=== PATIENT | female | born 1930 | race Caucasian/White ===

== ENCOUNTER 2022-01-21 11:25 | Day surgery (SDC) | payer OTHER ==
[2022-01-21] MEDS ORDERED: propofoL 200 MG/20 ML VIAL IV ONE (12:03)
[2022-01-21] MEDS ORDERED: FENTANYL CITR 100 MCG/2 ML ONE (12:03)
[2022-01-21] MEDS ORDERED: ONDANSETRON 4 MG/2 ML VIAL ONE (12:05)
[2022-01-21] MEDS ORDERED: LIDOCAINE 1% MPF 2 ML AMPULE ONE (12:06)
[2022-01-21] MEDS ORDERED: Ringers Lactate 1,000 ML IV ONE (12:11)
[2022-01-21 12:16] LABS: Absolute Lymphocytes (CBC) 1.9 K/uL (0.7-4.9); Hematocrit 39.2 % (36.0-45.0); Lymphocytes % 21.6 % (15.3-44.8); MPV 7.9 fL (7.6-11.3); RBC Red Blood Cell Count 4.47 M/uL (3.86-4.86)
[2022-01-21] MEDS ORDERED: SODIUM HYPOCHLORITE 0.25% 473 ML ONE (12:17)
[2022-01-21 12:24] LABS: Protime INR 1.12
[2022-01-21] MEDS: CEFAZOLIN SODIUM 1 GM/VIAL ONE ×2 (12:26→12:34)
[2022-01-21 12:32] LABS: Potassium 4.4 mmol/L (3.5-5.1)
[2022-01-21] MEDS: BUPIVACAINE 0.25% PF 10 ML VIAL ONE ×3 (12:33→12:53)
--- NOTE | 2022-01-21 13:17 | P.OP ---
Preoperative diagnosis: Right Foot 5th Toe Postoperative diagnosis: Right Foot 5th Toe Primary procedure: Amputation of Right Foot 5th Toe Secondary procedure: Debridement of Right foot multiple toe wounds Anesthesia: GETA Estimated blood loss: <10cc Specimen: Toe Findings: Necrosis of 5th Toe of the RIGHT foot Complications: None Transferred to: Recovery Room Condition: Good
--- NOTE | 2022-01-21 13:49 | OP ---
Date of Procedure: 01/21/2022 Surgeon: To Bermeo MD, Preoperative Diagnosis: Right foot fifth toe gangrene. Postoperative Diagnosis: Right foot fifth toe gangrene. Procedures Performed: 1.Amputation of the right fifth toe. 2.Debridement of subsequent wounds of all 4 remaining toes on the medial aspect. Anesthesia: General endotracheal. Estimated Blood Loss: Less than 10 mL. Specimen: Toe. Findings: Necrosis of the fifth toe of the right foot. Complications: None. Disposition: The patient was transferred to the recovery room in good condition. Procedure In Detail: After informed consent was obtained, the patient was brought to the operating r oom, prepped and draped in the usual sterile fashion after adequate anesthesia was achieved. I disse cted down circumferentially around the area of necrosis where there were black gangrenous changes to the fifth toe/big toe of the right foot with a 15-blade down to subcutaneous tissues. Bleeding was m inimal. I dissected down to the metatarsophalangeal joint and ligated the structures at this point, removed all infected and affected tissues, sent it off for pathologic examination. I then copiously irrigated the area until completely clear, ran a curette over the remaining medial toes where small w ounds were appreciated with sloughing necrosis. They did not require any extensive debridement. I t marko returned back to the fifth toe amputation site, irrigated the area, and reapproximated the deep t issues with 3-0 Vicryl suture and placed a single reapproximation stitch of 2-0 nylon on the lateral aspect. The wound was then packed with sterile dressing. The patient tolerated the procedure withou t evidence of complication and transferred to PACU in good condition. All counts were correct at the end of the case. TK/MODL Voice ID: [id number] Report ID: [id number]
[2022-01-21 14:42] VITALS: BP 121/56; O2SAT 100
[2022-01-21 15:37] VITALS: TEMP 97.1
== END 2022-01-21 15:30 | disposition home or self-care (01) ==
LOC: OR 11:25
PROVIDERS: ATTEND Surgery
PROC: 0HDMXZZ Extraction of Right Foot Skin, External Approach (ICD-10-PCS; 2022-01-21)
PROC: 0Y6M0Z8 Detachment at Right Foot, Complete 5th Ray, Open Approach (ICD-10-PCS; principal; 2022-01-21 11:30)
DX: I96 Gangrene, not elsewhere classified (principal); L03.031 Cellulitis of right toe; S91.104A Unspecified open wound of right lesser toe(s) without damage to nail, initial encounter; L08.9 Local infection of the skin and subcutaneous tissue, unspecified; Z20.822 Contact with and (suspected) exposure to COVID-19
CPT/HCPCS: 93005; 85025; 80048; 36415; 85610; 88305; 88311; 28810; 97597; U0003; J2704; J3010; J7120; J2405; J0690

== ENCOUNTER 2022-01-31 11:33 | Emergency (ER) | payer MEDICARE, OTHER ==
[2022-01-31] MEDS ORDERED: PIPERACIL/TAZO 3.375 GM VIAL IV ONE (12:49)
[2022-01-31] MEDS ORDERED: NA CHLORIDE 0.9% 100 ML ONE (12:49)
[2022-01-31] MEDS ORDERED: VANCOMYCIN 1 GM in NA CHLORIDE 0.9% 250 ML IVPB ONE (13:00)
[2022-01-31] MEDS ORDERED: VANCOMYCIN 1 GM/VIAL ONE (13:11)
[2022-01-31] MEDS ORDERED: NA CHLORIDE 0.9% 500 ML ONE ×2 (13:11→14:26)
[2022-01-31 13:36] LABS: Absolute Lymphocytes (CBC) 1.9 K/uL (0.7-4.9); Hematocrit 38.8 % (36.0-45.0); Lymphocytes % 15.2 % (15.3-44.8); MPV 7.8 fL (7.6-11.3); RBC Red Blood Cell Count 4.44 M/uL (3.86-4.86)
--- NOTE | 2022-01-31 14:15 | RAD REPORT ---
EXAM DESCRIPTION: RAD - Foot Right 3 View - 01/31/2022 1:24 pm CLINICAL HISTORY: PAIN COMPARISON: No comparisons FINDINGS: Prominent diffuse osteopenia is seen. Amputation of the fifth toe is present. There is cira dence of soft tissue ulceration at the level of the amputation site. The underlying bone cortex appea rs intact but could be exposed. Moderate flatfoot deformity.
[2022-01-31 14:55] LABS: Albumin 3.2 g/dL (3.4-5.0); Bilirubin Total 0.6 mg/dL (0.2-1.0); Potassium 5.2 mmol/L (3.5-5.1); Protein, Total 7.2 g/dL (6.4-8.2)
--- NOTE | 2022-01-31 15:05 | RAD REPORT ---
EXAM DESCRIPTION: US - Extrem Venous W Compress Sammy - 01/31/2022 2:56 pm CLINICAL HISTORY: Pain Bilateral leg edema and swelling. COMPARISON: <Comparisons> TECHNIQUE: Real-time sonographic interrogation of the left and right lower extremity deep venous sys tems was performed. FINDINGS: Normal compressibility, flow augmentation, phasic flow and spontaneous flow is identified in both the left and right lower extremity deep venous systems. IMPRESSION: No sonographic evidence of left or right lower extremity deep venous thrombosis.
--- NOTE | 2022-01-31 15:14 | RAD REPORT ---
EXAM DESCRIPTION: US - Lower Extremity Arterial Bilat - 01/31/2022 2:56 pm CLINICAL HISTORY: PAIN COMPARISON: No comparisons TECHNIQUE: Bilateral lower extremity arterial Doppler examination was performed with waveform tracin g and velocity measurements. FINDINGS: There is extensive hard plaquing throughout the right lower extremity arterial system. Monophasic dis ease waveform seen right popliteal artery with no flow visualized in the right posterior tibial and d iminished monophasic flow in the dorsalis pedis. Similar hard plaquing pattern is seen in the left lower extremity arterial system. No flow could be v isualized in the [place] arteries distal to the left proximal superficial femoral artery. Collateraliz ation is noted with reconstitution of flow in the left popliteal artery which is monophasic and signi ficantly blunted. No flow visualized left posterior tibial artery. Monophasic flow in the left dorsal is pedis artery. IMPRESSION: Significant bilateral lower extremity arterial vascular disease is present, more severe on the left as detailed.
--- NOTE | 2022-01-31 15:29 | ER ---
Nurse's Notes [facility] Name: Jia Mckinney Age: 89 yrs Sex: Female : 1930 Arrival Date: 01/31/2022 Time: 11:37 Bed 3 Private MD: Diagnosis: Peripheral artery disease;Cellulitis Presentation: 01/31 11:38 Chief complaint: EMS states: Family states that patient began hallucinating earlier ss today and they want her checked out to be safe. Has reportedly been having difficulty urinating and hx of amputated toes for infection. Coronavirus screen: Client denies travel out of the [place] in the last 14 days. Ebola Screen: Patient denies exposure to infectious person. Patient denies travel to an Ebola-affected area in the 21 days before illness onset. Initial Sepsis Screen:. Onset of symptoms was January 31, 2022. 11:38 Method Of Arrival: [facility] 11:39 Risk Assessment: Do you want to hurt yourself or someone else? Patient reports no ss desire to harm self or others. Care prior to arrival: IV initiated. 20 GA, in the left antecubital area, BGL 208. 11:40 Initial Sepsis Screen: Does the patient meet any 2 criteria? No. Patient's initial ss sepsis screen is negative. 11:40 Acuity: LUL 3 ss 11:40 Initial Sepsis Screen: Does the patient have a suspected source of infection? Yes: Bone jg9 or joint infection. Triage Assessment: 12:15 General: Appears in no apparent distress. Behavior is calm, cooperative. Pain: jg9 Complains of pain in right foot. EENT: No deficits noted. Neuro: No deficits noted. Cardiovascular: No deficits noted. Respiratory: No deficits noted. GI: No deficits noted. : No deficits noted. Derm: Skin Wound noted right foot-great toe amputation. Musculoskeletal: No deficits noted. Historical: - Allergies: 12:15 No Known Allergies; jg9 - Home Meds: 12:15 None [Active]; jg9 - PMHx: 12:15 PVD; jg9 - PSHx: 12:15 right great toe amputation; jg9 - Immunization history:: Adult Immunizations up to date. - Social history:: Smoking status: Patient denies any tobacco usage or history of. Screenin:35 Abuse screen: Denies threats or abuse. Denies injuries from another. Nutritional jg9 screening: No deficits noted. Tuberculosis screening: No symptoms or risk factors identified. Fall Risk Fall in past 12 months (25 points). Assessment: 13:39 Reassessment: No changes from previously documented assessment. Patient and/or family jg9 updated on plan of care and expected duration. Pain level reassessed. Patient is alert, oriented x 3, equal unlabored respirations, skin warm/dry/pink. 14:00 Reassessment: No changes from previously documented assessment. Patient and/or family jg9 updated on plan of care and expected duration. Pain level reassessed. Patient is alert, oriented x 3, equal unlabored respirations, skin warm/dry/pink. 16:00 Reassessment: No changes from previously documented assessment. Patient and/or family jg9 updated on plan of care and expected duration. Pain level reassessed. Patient is alert, oriented x 3, equal unlabored respirations, skin warm/dry/pink. 17:00 Reassessment: No changes from previously documented assessment. Patient and/or family jg9 updated on plan of care and expected duration. Pain level reassessed. Patient is alert, oriented x 3, equal unlabored respirations, skin warm/dry/pink. 18:15 Reassessment: report called to [facility] to ZOIE Gaines. jg9 Vital Signs: 11:40 BP 144 / 88; Pulse 88; Resp 16; Temp 97.9(O); Pulse Ox 99% on R/A; ss 11:45 BP 116 / 78; Pulse 75; Resp 16; Temp 97.8(O); Pulse Ox 98% on R/A; dh3 13:45 BP 109 / 71; Pulse 80; Resp 17 S; Pulse Ox 98% on R/A; jg9 18:15 BP 108 / 80; Pulse 74; Resp 16 S; Pulse Ox 95% on R/A; jg9 19:50 BP 110 / 78; Pulse 76; Resp 18; Temp 98; Pulse Ox 97% ; ke1 ED Course: 11:37 Patient arrived in ED. ss 11:41 Triage completed. ss 11:52 Jia Lin PA is PHCP. en 11:52 Adithya Barber MD is Attending Physician. [facility] 12:19 Deepthi Trevizo, RN is Primary Nurse. jg9 13:15 Inserted saline lock: 20 gauge in right antecubital area, using aseptic technique. jg9 13:26 Foot Right 3 View XRAY In Process Unspecified. EDMS 13:38 Arm band placed on left ankle. jg9 13:39 Patient has correct armband on for positive identification. Bed in low position. Call jg9 light in reach. Side rails up X 1. 14:02 No apparent distress. Resting quietly. Pt visited by Friend. jg9 14:30 Lab(s) recollected, by me, sent to lab. Inserted saline lock: 22 gauge in left forearm, dh3 using aseptic technique. Blood collected. 14:58 US Extremity Venous W Compression Sammy In Process Unspecified. EDMS 14:58 US LE Arterial Bilateral In Process Unspecified. EDMS 15:26 Crys Singh MD is Hospitalizing Provider. en 16:00 initiated a transfer with Yair Hitchcock from the [facility]. eb 16:[address] Moscoso the hospitalist check writer salesperson for [facility] with Jia Ponce for patient transfer consultation. 16:52 SARS-COV-2 RT PCR (Document "Date of Onset" if Symptomatic) Sent. eb 17:08 administrative approval given by Yair Hitchcock Promotion Specialist transaction coordinator. eb patient has been accepted to [facility] room 1039/ report to be called to [phone]. 19:51 No provider procedures requiring assistance completed. Patient transferred, IV remains ke1 in place. Administered Medications: 13:36 Drug: Zosyn (piperacillin-tazobactam) 3.375 grams Route: IVPB; Infused Over: 60 mins; jg9 Site: right antecubital; 14:32 Follow up: IV Status: Completed infusion; IV Intake: 100ml jg9 14:32 Drug: NS 0.9% 500 ml Route: IV; Rate: bolus; Site: left forearm; jg9 18:14 Follow up: IV Status: Completed infusion; IV Intake: 500ml jg9 14:33 Drug: vancoMYCIN 1 grams Route: IVPB; Infused Over: 2 hrs; Site: right antecubital; jg9 18:14 Follow up: IV Status: Completed infusion; IV Intake: 500ml jg9 19:31 Drug: NS 0.9% 1000 ml Route: IV; Rate: 125 ml/hr; Site: right antecubital; jg9 Medication: 13:39 VIS not applicable for this client. jg9 Intake: 14:32 IV: 100ml; Total: 100ml. jg9 18:14 IV: 500ml; Total: 600ml. jg9 18:14 IV: 500ml; Total: 1100ml. jg9 Outcome: 15:28 Decision to Hospitalize by Provider. en 19:20 ER care complete, transfer ordered by MD. ms3 19:51 Transferred by ground EMS ke1 19:51 Condition: stable 19:51 Instructed on the need for transfer. 19:52 Patient left the ED. ke1 Signatures: Dispatcher [employer] EDMS Adithya Barber MD MD cha Smirch, Shelby, RN RN Katey Solorio [facility] Jia Cuevas Marcus, DO DO ms3 Deepthi Trevizo RN RN jg9 Sandy Da Silva RN RN ke1 Jia Lin PA PA en Corrections: (The following items were deleted from the chart) 16:56 16:34 connected the hospitalist check writer salesperson for [facility] with Jia Ponce for eb patient transfer consultation. eb
--- NOTE | 2022-01-31 15:29 | EDPHYS ---
Physician Documentation [facility] Name: Jia Mckinney Age: 89 yrs Sex: Female : 1930 Arrival Date: 01/31/2022 Time: 11:37 Bed 3 Private MD: ED Physician Adithya Barber HPI: 01/31 13:20 This 89 yrs old Female presents to ER via EMS with complaints of foot en infection. 13:21 89 yo F with HTN, DM presents to ED with worsening right foot infection. pt is s/p R en 5th toe amputation 10d ago by Dr Bear. Completed po bactrim 2 days ago and noticed worsening swelling and drainage from foot soaking through dressing. Pt lives alone. Wound care has been out to house and family is doing daily dressing changes. No redness or purulence. increased pain to 1st toe, which is new. No F/C. . Historical: - Allergies: 12:15 No Known Allergies; jg9 - Home Meds: 12:15 None [Active]; jg9 - PMHx: 12:15 PVD; jg9 - PSHx: 12:15 right great toe amputation; jg9 - Immunization history:: Adult Immunizations up to date. - Social history:: Smoking status: Patient denies any tobacco usage or history of. ROS: 13:21 Constitutional: Negative for fever, chills, and weight loss. en 13:21 Constitutional: Negative for chills, fever. 13:21 Cardiovascular: Negative for chest pain. 13:21 Respiratory: Negative for cough, shortness of breath. 13:21 Abdomen/GI: Negative for nausea, vomiting, and diarrhea. 13:21 MS/extremity: Negative for worsening right foot pain and swelling. 13:21 Skin: Positive for increased serous drainage from right foot soaking through dressings. . 13:21 All other systems are negative. Exam: 13:21 Constitutional: Chronically ill appearing and elderly female in NAD en 13:21 Constitutional: The patient appears alert, awake. 13:21 Head/face: Exam is negative for acute changes. 13:21 Eyes: Conjunctiva: no acute changes, no exudate, no injection. 13:21 ENT: poor dentition, airway patent, MMM. 13:21 Neck: ROM/movement: is normal. 13:21 Cardiovascular: Exam negative for Rate: normal, Rhythm: regular, Pulses: 1+DP pulses BLE, unable to palpate PT pulses. 2+ BUE. 13:21 Respiratory: the patient does not display signs of respiratory distress, Respirations: normal, Breath sounds: are clear throughout, no rales, rhonchi, no wheezing. 13:21 Abdomen/GI: Inspection: abdomen appears normal, Bowel sounds: normal, Palpation: abdomen is soft and non-tender. 13:21 Back: CVA tenderness, is absent. 13:21 Musculoskeletal/extremity: Right foot dusky with diffuse pitting edema. s/p R 5th toe amputation/ Incision with sutures in place. 1+ faint DP, unable to palpate PT. No surrounding erythema or expressible purulence but copious serous drainage.. Vital Signs: 11:40 BP 144 / 88; Pulse 88; Resp 16; Temp 97.9(O); Pulse Ox 99% on R/A; ss 11:45 BP 116 / 78; Pulse 75; Resp 16; Temp 97.8(O); Pulse Ox 98% on R/A; dh3 13:45 BP 109 / 71; Pulse 80; Resp 17 S; Pulse Ox 98% on R/A; jg9 18:15 BP 108 / 80; Pulse 74; Resp 16 S; Pulse Ox 95% on R/A; jg9 19:50 BP 110 / 78; Pulse 76; Resp 18; Temp 98; Pulse Ox 97% ; ke1 MDM: 11:52 Patient medically screened. [facility] 13:21 Differential Diagnosis gangrene, cellulitis, post-op infection, PVD. ED course: en reviewed imaging and labs and need for admission. Consulted Dr Pedraza, who will see pt. . 15:57 Data reviewed: vital signs, nurses notes, old medical records, and as a result, I will en Initial plan was for admission. Now transferring. ED course: Pt has now agreed to transfer. Will initiate transfer. 16:37 ED course: Accepted by Dr Moscoso at [facility]. en 01/31 12:32 Order name: CBC with Diff; Complete Time: 15:58 en 01/31 12:32 Order name: CMP; Complete Time: 15:58 en 01/31 12:32 Order name: Blood Culture Adult (2) en 01/31 12:32 Order name: Foot Right 3 View XRAY; Complete Time: 15:58 en 01/31 12:47 Order name: US Extremity Venous W Compression Sammy; Complete Time: 15:58 [facility] 01/31 15:58 Order name: SARS-COV-2 RT PCR (Document "Date of Onset" if Symptomatic) eb 01/31 12:32 Order name: Cardiac monitoring; Complete Time: 13:36 en 01/31 12:32 Order name: EKG - Nurse/Tech; Complete Time: 13:36 en 01/31 12:47 Order name: US LE Arterial Bilateral; Complete Time: 15:58 [facility] 01/31 12:32 Order name: IV Saline Lock - Large Bore; Complete Time: 13:36 en 01/31 12:32 Order name: Labs collected and sent; Complete Time: 13:36 en 01/31 12:32 Order name: O2 Per Protocol; Complete Time: 12:50 en 01/31 12:32 Order name: O2 Sat Monitoring; Complete Time: 12:50 en 01/31 13:45 Order name: Labs - recollect needed: recollect chemistries; Complete Time: 14:32 eb Administered Medications: 13:36 Drug: Zosyn (piperacillin-tazobactam) 3.375 grams Route: IVPB; Infused Over: 60 mins; jg9 Site: right antecubital; 14:32 Follow up: IV Status: Completed infusion; IV Intake: 100ml jg9 14:32 Drug: NS 0.9% 500 ml Route: IV; Rate: bolus; Site: left forearm; jg9 18:14 Follow up: IV Status: Completed infusion; IV Intake: 500ml jg9 14:33 Drug: vancoMYCIN 1 grams Route: IVPB; Infused Over: 2 hrs; Site: right antecubital; jg9 18:14 Follow up: IV Status: Completed infusion; IV Intake: 500ml jg9 19:31 Drug: NS 0.9% 1000 ml Route: IV; Rate: 125 ml/hr; Site: right antecubital; jg9 Disposition: 16:11 Chart complete. en Disposition Summary: 01/31/22 19:20 Transfer Ordered Transfer Location: [facility] ms3 Reason: Higher level of care ms3 Condition: Stable(01/31/22 19:20) ms3 Problem: new(01/31/22 19:20) ms3 Symptoms: are unchanged(01/31/22 19:20) ms3 Accepting Physician: (01/31/22 19:52) adolfo Diagnosis - Peripheral artery disease ms3 - Cellulitis ms3 Forms: - Medication Reconciliation Form ms3 - SBAR form ms3 Signatures: Dispatcher [employer] EDMS Adithya Barber MD MD cha Botello, Elizabeth eb Sims, Marcus, DO DO ms3 Deepthi Trevizo RN RN jg9 Sandy Da Silva RN RN ke1 Jia Lin, LISA PA en Corrections: (The following items were deleted from the chart) 12:38 12:32 Accucheck ordered. en jg9 19:18 15:28 Inpatient Admission en ms3 19:18 15:28 Crys Singh en ms3 19:18 15:28 Telemetry/MedSurg (Inpatient) en ms3 19:18 15:28 Fair en ms3 19:18 15:28 chronic en ms3 19:18 15:28 have worsened en ms3 19:18 15:28 Standard en ms3 19:18 15:28 en ms3 19:18 15:28 Cellulitis of right lower limb en ms3 19:18 15:28 Peripheral vascular disease, unspecified en ms3 19:52 19:20 ms3 ke1
--- NOTE | 2022-01-31 19:31 | CON ---
Date of Consultation: 01/31/2022 Brief History Of Present Illness: The patient is an 89-year-old female, known to me from [facility], who presents back to the ER with complaints of worsening, swelling and pain to her r ight fifth toe amputation site and worsening cellulitis and pain to the remaining foot. The patient had been placed on p.o. Bactrim and was recommended to go see Dr. Gaurang Jesus, endovascular radiologist, referral has been sent. The patient also had orders for duplex arterial venous ultrasounds to evalu ate her arterial venous systems for severe peripheral arterial disease suspected; however, the patien t opted to not have any of these procedures performed after her emergent surgical intervention. She had essentially been seen in my clinic in the past and stated that she would only have surgery if she could have it done that same day. Fortunately, she was n.p.o., was taken on that previous occasion to the OR where an amputation of the fifth toe was performed as she would only consent to amputation of the fifth toe and no additional debridements. She states she wanted to see if it would improve af ter that and as such she did not follow up in my clinic in the allotted time. We had wound care arra kelsea for her and she had worsening of her wound. She was recommended to go to the ER and have this e valuated and come to my clinic earlier to have the wound assessed on a frequent followup basis and I instructed her likely severe peripheral arterial disease; however, she continued to resist coming to the clinic ER or have any medical assistance. Her neighbor has been assisting to bring her to and fr om her various appointments. She is the person responsible for bringing her to the ER on this occasi on as well. I have instructed the patient that it looks like she has significant worsening of her sy mptoms. The patient is insisting she wants to go home and does not want to be admitted for a workup or treatment regardless of the outcome. Past Medical History: Significant for severe peripheral arterial disease. Also includes hypertensio n. Past Surgical History: Right great toe amputation. Medications: She denies. Allergies: SHE DENIES ANY DRUG ALLERGIES. SHE HAD A LABORATORY EXAM WHICH REVEALED A WHITE BLOOD CELL COUNT OF 12.3, HEMOGLOBIN 12.6, HEMATOCRI T OF 38.8, PLATELET COUNT WAS 284. Physical Examination: General: At the time of my examination; she is awake, alert, and oriented. Psychiatric: She was conversive, but belligerent. This was consistent with all of my interactions w ith her in the past, both in clinic and hospital and in the perioperative. She was quite belligerent throughout; however, she was more receptive to medical care with the presence of her neighbor who wa s assisting her on all of these occasions. She was oriented to person, place, time, and event howeve r. Generally, she also appears disheveled as she did on previous occasion as well. HEENT: She is normocephalic. She had a dysconjugate gaze and some anisocoria with respect to her ey es. Neck: Supple without JVD. Chest: Expansion and excursion. Cardiovascular: Regular. Pulmonary: Clear to auscultation bilaterally. Abdomen: Soft. Extremities: Focused examination of the bilateral lower extremities, previous surgical site in the r ight lower extremity the fifth toe had ongoing black necrosis and an open wound which was not properl y dressed with ischemic changes evident and ongoing infection. The cellulitis extended over the enti re distal aspect of the foot up to the mid foot with mild swelling proximal to this up to the mid jose f area. It was all tender on bilateral lower extremities and her extremities were both cool to the t ouch. She additionally had small skin abrasions, which she states she fell recently and had describe d multiple falls before between the last surgical intervention and today's visit to the ER. There ar e very small abrasions to the right lower extremity, left lower extremity as well. She has discolora tion and lack of hair consistent with severe peripheral arterial disease on the bilateral lower extre mity examination and I cannot palpate pulses here as well. Laboratory Data: She had an additional lab work, which included sodium of 131, potassium 5.2, chlori de 99, carbon dioxide was 21, BUN 36, creatinine 1.3, glucose is 134, calcium 9.1, total bilirubin 0. 6, AST 61, ALT 69, alkaline phosphatase is 142. She had a serology of COVID, which is currently pend ing. I ordered a stat Doppler ultrasound study of the bilateral lower extremities, which was officia lly read as extensive hard plaquing throughout the right lower extremity arterial system, monophasic disease waveform seen in the right popliteal artery with no flow visualized in the right posterior ti bial and diminished monophasic flow in the dorsalis pedis. Similar hard plaquing pattern seen in the left lower extremity arterial system. No flow could be visualized in the [place] arteries distal to the left proximal superficial femoral artery. Collateralization is noted with reconstitution of flow in the popliteal artery, which is monophasic and significantly blunted. No flow visualized in the l eft posterior tibial artery. Monophasic flow in the left dorsalis pedis artery. The official impres naida is significant bilateral lower extremity arterial vascular disease present, more severe on the l eft as detailed. She additionally had a venous extremity study, officially read as no sonographic ev idence of left or right DVT. Assessment And Plan: This is an 89-year-old female, who comes in with severe peripheral arterial dis ease, status post amputation of the fifth toe of her left foot, now with worsening cellulitis and claudio oing infection of bilateral extremities. 1.IV fluid hydration. 2.Antibiotic coverage. 3.I have requested a consultation with Dr. Emery for endovascular assessment to see if the patient can have endovascular radiologic revascularization at this point; however, if she is not a candidate for this, I recommend transfer to higher level of care for possible revascularization and assessment with a vascular surgeon. The patient is belligerent and has been declining any intervention includin g admission in the hospital. She has agreed to the studies, which were elicited above as well as rec eiving IV vancomycin x1 dose. I will await Dr. Emery's recommendations. We are contacting Dr. Mai groves currently and if he feels she is a good candidate for revascularization here, she will be treated here. If not, she will be transferred to higher level of care for ongoing management. I have explai homero risks, benefits, and alternatives of the above stated plan. The patient is belligerent and state s she will think about it prior to making a decision. As such, I will remain available. Thank you for this interesting consult. DOUGLAS/CHEPE Voice ID: [id number] Report ID: [id number]
[2022-01-31] MEDS ORDERED: NA CHLORIDE 0.9% 1,000 ML ONE (19:39)
[2022-01-31 20:04] VITALS: BP 110/78; TEMP 98; O2SAT 97
--- NOTE | 2022-02-01 13:21 | EKG ---
Test Date: 2022-01-31 Test Time: 12:48:50 Prestidigitator: KELECHI MEASUREMENT RESULTS: Intervals: Rate: 71 PA: QRSD: 82 QT: 414 QTc: 449 Keller: P: PA: QRS: -16 T: 54 INTERPRETIVE STATEMENTS: Atrial fibrillation ST & T wave abnormality, consider anterior ischemia Abnormal ECG No previous ECG available for comparison Electronically Signed On 02-01-22 13:19:28 CDT by Gilbert Emery
== END 2022-01-31 19:52 | disposition short-term general hospital (02) ==
LOC: ER 11:33
DX: I73.9 Peripheral vascular disease, unspecified (principal); Z89.411 Acquired absence of right great toe; E11.9 Type 2 diabetes mellitus without complications; I10 Essential (primary) hypertension; Z20.822 Contact with and (suspected) exposure to COVID-19
CPT/HCPCS: 96365; 96367; 93005; 87040 ×2; 85025; 36415; 87205 ×2; 80053; 73630; 93925; 93970; 99285; 96366; U0003; J2543; J3370; J7040 ×2; J7030

== ENCOUNTER 2022-02-18 18:49 | Emergency (ER) | payer OTHER ==
--- OUTSIDE RECORDS SUMMARY | 2022-02-18 19:15 | XMS REPORT | Continuity of Care Document ---
:1930 Author Organization [facility] t Address [address] [place] [address] Care Team Providers Name Role Phone MENA VILLEGAS Attending Clinician Unavailable Attending Clinician Unavailable SUSAN AVELAR Admitting Clinician Unavailable Payers Payer Name Policy Type Policy Number Effective Date Expiration Date Tiffanie RODRIGEZ MEDICARE [id number] 2021 00:00:00 Problems This patient has no known problems. Allergies, Adverse Reactions, Alerts Allergy Allergy Status Severity Reaction(s) Onset Inactive Treating Comm ents Source Name Type Date Date Clinician NO KNOWN Allergy Active [facility] Medications This patient has no known medications. Vital Signs Vital Name Observation Time Observation Value Comments Source HEIGHT 2022-01-31 21:33:00 157.5 cm WEIGHT 2022-01-31 21:33:00 62.506 kg HEIGHT 2022-01-31 21:33:00 157.5 cm WEIGHT 2022-01-31 21:33:00 62.506 kg Procedures This patient has no known procedures. Encounters Start End Encounter Admission Attending Care Care Encounter Source Date/Time Date/Time Type Type Clinicians Facility Department ID 2022-01-31 2022-02-10 Inpatient ER REINIER VILLEGAS [facility] Vascular [id number] [facility] 21:17:00 16:20:00 Karly 2022-02-01 2022-02-[address] [facility] [id number] 3 [facility] 00:00:00 23:59:00 [place] Results Test Description Test Time Test Comments Results Result Comments Source SARS-COV2/RT-PCR ([facility]) 2022-02-08 20:54:59 Test Item Value Reference Range Interpretation Comme nts SARS-COV2/RT-PCR (test code = 3841768) Negative Negative Negative result for this test determines that SARS-CoV-2 RNA was not present in the specimen above the Limit of Detection (LOD). However, Negative results do not preclude SARS-CoV-2 infection and should not be used as the sole basis for treatment or patient management decisions. Negative results must be combined with clinical observations, patient history, and epidemiological information. A false negative result may occur if a specimen is improperly collected, transported, or handled. A false negative result should be considered if patient's recent exposures or clinical presentation indicate that COVID-19 (SARS-CoV-2) is likely and diagnostic tests for other causes of illness are negative. Re-testing should be considered in cases of suspected false negatives.The limit of detection for this assay is 100 copies/mL.This SARS-CoV-2 test is a real-time RT_PCR test intended for the qualitative detection of nucleic acid from SARS-CoV-2 in a nasopharyngeal swab specimen collected from individuals suspected of COVID-19 by their healthcare provider.This test has not been Food and Drug Administration (FDA) cleared or approved. This is a modified version of an approved Emergency Use Authorization (EUA) and is in the process of review by the FDA. Once authorized by the FDA, the issued EUA will be e ffective until the declaration that circumstances exist justifying the authorization of the emergency use of in vitro diagnostic tests for detection and/or diagnosis of COVID-19 is terminated under Section 564(b)(2) of the Act or the EUA is revoked under Section 564(g) of the Act.Testing was performedusing the Haddad SARS-CoV-2 assay.Fact Sheet for Healthcare Providers:https://www.molecular.haddad/anastacia/RT SARS-CoV-2 HCP Fact Sheet 51- 035272.pdfFact Sheet for Healthcare Patients:https://www.molecular.haddad/anastacia/RT SARS-CoV-2 Patient Fact Sheet EN 51-010805I0.pdfRHEUMATOID FACTOR AB, REFLEX TO [id number] 12:58:48 Test Item Value Reference Range Interpretation Comments RHEUMATOID FACTOR (BEAKER) (test Negative Negative code = 573) BASIC METABOLIC [id number] 05:01:07 Test Item Value Reference Range Interpretation Comments SODIUM (BEAKER) 139 meq/L 136-145 (test code = 381) POTASSIUM (BEAKER) 3.6 meq/L 3.5-5.1 (test code = 379) CHLORIDE (BEAKER) 109 meq/L 98-107 H (test code = 382) CO2 (BEAKER) (test 22 meq/L 22-29 code = 355) BLOOD UREA NITROGEN 18 mg/dL 7-21 (BEAKER) (test code = 354) CREATININE (BEAKER) 0.66 mg/dL 0.57-1.25 (test code = 358) GLUCOSE RANDOM 105 mg/dL 70-105 (BEAKER) (test code = 652) CALCIUM (BEAKER) 8.6 mg/dL 8.4-10.2 (test code = 697) EGFR (BEAKER) (test 84 mL/min/1.73 ESTIMA MENG GFR IS code = 1092) sq m NOT ACCURATE CREATININE CLEARANCE IN PREDICTING GLOMERULAR FILTRATION RATE . ESTIMATED GFR I S NOT APPLICABLE FOR DIALYSIS PATIEN TS. Dining Room Captain ID - CLEOPATRA LURINALYSIS W/ REFLEX URINE [id number] 20:49:40 Test Item Value Reference Range Interpretation Comments COLOR (BEAKER) (test code = 470) Yellow CLARITY (BEAKER) (test code = 469) Clear SPECIFIC GRAVITY UA (BEAKER) (test 1.020 1.001-1.035 code = 468) PH UA (BEAKER) (test code = 467) 6.0 5.0-8.0 PROTEIN UA (BEAKER) (test code = Negative Negative 464) GLUCOSE UA (BEAKER) (test code = Negative Negative 365) KETONES UA (BEAKER) (test code = Negative Negative 371) BILIRUBIN UA (BEAKER) (test code = Negative Negative 462) BLOOD UA (BEAKER) (test code = Trace Negative A 461) NITRITE UA (BEAKER) (test code = Negative Negative 465) LEUKOCYTE ESTERASE UA (BEAKER) Moderate Negative A (test code = 466) UROBILINOGEN UA (BEAKER) (test 2.0 mg/dL 0.2-1.0 H code = 463) RBC UA (BEAKER) (test code = 519) 2 /HPF WBC UA (BEAKER) (test code = 520) 2 /HPF BACTERIA (BEAKER) (test code = Occasional 517) SQUAMOUS EPITHELIAL (BEAKER) (test 1 /HPF code = 516) CRYSTALS, URINE (BEAKER) (test None Seen code = 1521) SOURCE(BEAKER) (test code = 2795) Dining Room Captain ID - [auto]Dining Room Captain ID - techPOTASSIUM, RANDOM [id number] 20:37:13 Test Item Value Reference Range Interpretation Comments POTASSIUM URINE (BEAKER) (test 31.9 meq/L code = 195) Reference Range: No NormalsOperator ID - BSSODIUM, RANDOM [id number] 20:37:13 Test Item Value Reference Range Interpretation Comments SODIUM URINE (BEAKER) (test code = 46 meq/L 243) Reference Range: No NormalsOperator ID - BSCHLORIDE, RANDOM [id number] 20:37:12 Test Item Value Reference Range Interpretation Comments CHLORIDE URINE (BEAKER) (test code = 54 meq/L 682) Reference Range: No NormalsOperator ID - [id number] 06:19:12 Test Item Value Reference Range Interpretation Comments PARTIAL THROMBOPLASTIN TIME 79.5 seconds 22.5-36.0 H (BEAKER) (test code = 760) CBC W/PLT COUNT & AUTO [id number] 06:09:28 Test Item Value Reference Range Interpretation Comments WHITE BLOOD CELL COUNT (BEAKER) 9.4 K/ L 3.5-10.5 (test code = 775) RED BLOOD CELL COUNT (BEAKER) 4.24 M/ L 3.93-5.22 (test code = 761) HEMOGLOBIN (BEAKER) (test code = 12.1 GM/DL 11.2-15.7 410) HEMATOCRIT (BEAKER) (test code = 38.2 % 34.1-44.9 411) MEAN CORPUSCULAR VOLUME (BEAKER) 90.1 fL 79.4-94.8 (test code = 753) MEAN CORPUSCULAR HEMOGLOBIN 28.5 pg 25.6-32.2 (BEAKER) (test code = 751) MEAN CORPUSCULAR HEMOGLOBIN CONC 31.7 GM/DL 32.2-35.5 L (BEAKER) (test code = 752) RED CELL DISTRIBUTION WIDTH 18.0 % 11.7-14.4 H (BEAKER) (test code = 412) PLATELET COUNT (BEAKER) (test 234 K/CU MM 150-450 code = 756) MEAN PLATELET VOLUME (BEAKER) 10.1 fL 9.4-12.3 (test code = 754) NUCLEATED RED BLOOD CELLS 0 /100 WBC 0-0 (BEAKER) (test code = 413) NEUTROPHILS RELATIVE PERCENT 70 % (BEAKER) (test code = 429) LYMPHOCYTES RELATIVE PERCENT 20 % (BEAKER) (test code = 430) MONOCYTES RELATIVE PERCENT 7 % (BEAKER) (test code = 431) EOSINOPHILS RELATIVE PERCENT 3 % (BEAKER) (test code = 432) BASOPHILS RELATIVE PERCENT 0 % (BEAKER) (test code = 437) NEUTROPHILS ABSOLUTE COUNT 6.53 K/ L 1.56-6.13 H (BEAKER) (test code = 670) LYMPHOCYTES ABSOLUTE COUNT 1.85 K/ L 1.18-3.74 (BEAKER) (test code = 414) MONOCYTES ABSOLUTE COUNT (BEAKER) 0.68 K/ L 0.24-0.36 H (test code = 415) EOSINOPHILS ABSOLUTE COUNT 0.24 K/ L 0.04-0.36 (BEAKER) (test code = 416) BASOPHILS ABSOLUTE COUNT (BEAKER) 0.01 K/ L 0.01-0.08 (test code = 417) IMMATURE GRANULOCYTES-RELATIVE 0 % 0-1 PERCENT (BEAKER) (test code = 2801) HIGH SENSITIVITY TROPONIN [id number] 10:42:54 Test Item Value Reference Range Interpretation Comments HIGH SENSITIVITY 122 pg/ml See_Comment H [Automated message] TROPONIN I (test code The stem which = [id number]) generated this result transmitted ref erence range: <=17. Th e reference range was not used to int erpret this result as normal/abnormal . Dining Room Captain ID - DBThe RUSSIAN RUBBER STAT High Sensitivity Troponin-I results should be used in conjunctionwith other diagnostic information such as ECG, clinical observations and information, and patient symptoms to aid in the diagnosis of AL.BASIC METABOLIC [id number] 06:20:14 Test Item Value Reference Range Interpretation Comments SODIUM (BEAKER) 136 meq/L 136-145 (test code = 381) POTASSIUM (BEAKER) 3.5 meq/L 3.5-5.1 (test code = 379) CHLORIDE (BEAKER) 108 meq/L 98-107 H (test code = 382) CO2 (BEAKER) (test 18 meq/L 22-29 L code = 355) BLOOD UREA NITROGEN 28 mg/dL 7-21 H (BEAKER) (test code = 354) CREATININE (BEAKER) 0.78 mg/dL 0.57-1.25 (test code = 358) GLUCOSE RANDOM 76 mg/dL 70-105 (BEAKER) (test code = 652) CALCIUM (BEAKER) 8.5 mg/dL 8.4-10.2 (test code = 697) EGFR (BEAKER) (test 70 mL/min/1.73 ESTIMA MENG GFR IS code = 1092) sq m NOT ACCURATE CREATININE CLEARANCE IN PREDICTING GLOMERULAR FILTRATION RATE . ESTIMATED GFR I S NOT APPLICABLE FOR DIALYSIS PATIEN TS. Dining Room Captain ID - PIAYA [id number] 06:01:04 Test Item Value Reference Range Interpretation Comments PARTIAL THROMBOPLASTIN TIME 84.9 seconds 22.5-36.0 H (BEAKER) (test code = 760) CBC (HEMOGRAM ONLY)2022-02-04 05:45:59 Test Item Value Reference Range Interpretation Comments WHITE BLOOD CELL COUNT (BEAKER) 10.2 K/ L 3.5-10.5 (test code = 775) RED BLOOD CELL COUNT (BEAKER) 3.85 M/ L 3.93-5.22 L (test code = 761) HEMOGLOBIN (BEAKER) (test code = 11.2 GM/DL 11.2-15.7 410) HEMATOCRIT (BEAKER) (test code = 34.5 % 34.1-44.9 411) MEAN CORPUSCULAR VOLUME (BEAKER) 89.6 fL 79.4-94.8 (test code = 753) MEAN CORPUSCULAR HEMOGLOBIN 29.1 pg 25.6-32.2 (BEAKER) (test code = 751) MEAN CORPUSCULAR HEMOGLOBIN CONC 32.5 GM/DL 32.2-35.5 (BEAKER) (test code = 752) RED CELL DISTRIBUTION WIDTH 17.5 % 11.7-14.4 H (BEAKER) (test code = 412) PLATELET COUNT (BEAKER) (test 216 K/CU MM 150-450 code = 756) MEAN PLATELET VOLUME (BEAKER) 9.7 fL 9.4-12.3 (test code = 754) NUCLEATED RED BLOOD CELLS 0 /100 WBC 0-0 (BEAKER) (test code = 413) HIGH SENSITIVITY TROPONIN [id number] 17:21:55 Test Item Value Reference Range Interpretation Comments HIGH SENSITIVITY 189 pg/ml See_Comment H [Automated message] TROPONIN I (test code The sy stem which = [id number]) generated this result transmitted ref erence range: <=17. Th e reference range was not used to int erpret this result as normal/abnormal . Dining Room Captain ID - BSThe RUSSIAN RUBBER STAT High Sensitivity Troponin-I results should be used in conjunctionwith other diagnostic information such as ECG, clinical observations and information, and patient symptoms to aid in the diagnosis of AL.BASIC METABOLIC [id number] 07:21:10 Test Item Value Reference Range Interpretation Comments SODIUM (BEAKER) 136 meq/L 136-145 (test code = 381) POTASSIUM (BEAKER) 4.2 meq/L 3.5-5.1 (test code = 379) CHLORIDE (BEAKER) 107 meq/L 98-107 (test code = 382) CO2 (BEAKER) (test 17 meq/L 22-29 L code = 355) BLOOD UREA NITROGEN 35 mg/dL 7-21 H (BEAKER) (test code = 354) CREATININE (BEAKER) 1.06 mg/dL 0.57-1.25 (test code = 358) GLUCOSE RANDOM 89 mg/dL 70-105 (BEAKER) (test code = 652) CALCIUM (BEAKER) 8.6 mg/dL 8.4-10.2 (test code = 697) EGFR (BEAKER) (test 49 mL/min/1.73 ESTIMA MENG GFR IS code = 1092) sq m NOT ACCURATE CREATININE CLEARANCE IN PREDICTING GLOMERULAR FILTRATION RATE . ESTIMATED GFR I S NOT APPLICABLE FOR DIALYSIS PATIEN TS. Dining Room Captain ID - FLORINDA [id number] 06:38:34 Test Item Value Reference Range Interpretation Comments PARTIAL THROMBOPLASTIN TIME 84.5 seconds 22.5-36.0 H (BEAKER) (test code = 760) CBC (HEMOGRAM ONLY)2022-02-03 06:27:12 Test Item Value Reference Range Interpretation Comments WHITE BLOOD CELL COUNT (BEAKER) 11.7 K/ L 3.5-10.5 H (test code = 775) RED BLOOD CELL COUNT (BEAKER) 3.72 M/ L 3.93-5.22 L (test code = 761) HEMOGLOBIN (BEAKER) (test code = 10.6 GM/DL 11.2-15.7 L 410) HEMATOCRIT (BEAKER) (test code = 32.9 % 34.1-44.9 L 411) MEAN CORPUSCULAR VOLUME (BEAKER) 88.4 fL 79.4-94.8 (test code = 753) MEAN CORPUSCULAR HEMOGLOBIN 28.5 pg 25.6-32.2 (BEAKER) (test code = 751) MEAN CORPUSCULAR HEMOGLOBIN CONC 32.2 GM/DL 32.2-35.5 (BEAKER) (test code = 752) RED CELL DISTRIBUTION WIDTH 17.2 % 11.7-14.4 H (BEAKER) (test code = 412) PLATELET COUNT (BEAKER) (test 237 K/CU MM 150-450 code = 756) MEAN PLATELET VOLUME (BEAKER) 10.0 fL 9.4-12.3 (test code = 754) NUCLEATED RED BLOOD CELLS 0 /100 WBC 0-0 (BEAKER) (test code = 413) [id number] 23:26:49 Test Item Value Reference Range Interpretation Comments PARTIAL THROMBOPLASTIN TIME 64.6 seconds 22.5-36.0 H (BEAKER) (test code = 760) [id number] 17:07:24 Test Item Value Reference Range Interpretation Comments PARTIAL THROMBOPLASTIN TIME 23.1 seconds 22.5-36.0 (BEAKER) (test code = 760) T4, [id number] 13:42:03 Test Item Value Reference Range Interpretation Comments FREE T4 (BEAKER) (test code = 655) 0.99 ng/dL 0.70-1.48 Dining Room Captain ID - PIAYA LTSH/FREE T4 IF [id number] 12:28:07 Test Item Value Reference Range Interpretation Comments THYROID STIMULATING HORMONE 0.238 uIU/mL 0.350-4.940 L (BEAKER) (test code = 772) Dining Room Captain ID - BISHOPAYA LBASIC METABOLIC [id number] 11:23:42 Test Item Value Reference Range Interpretation Comments SODIUM (BEAKER) 133 meq/L 136-145 L (test code = 381) POTASSIUM (BEAKER) 4.2 meq/L 3.5-5.1 (test code = 379) CHLORIDE (BEAKER) 103 meq/L 98-107 (test code = 382) CO2 (BEAKER) (test 18 meq/L 22-29 L code = 355) BLOOD UREA NITROGEN 31 mg/dL 7-21 H (BEAKER) (test code = 354) CREATININE (BEAKER) 0.91 mg/dL 0.57-1.25 (test code = 358) GLUCOSE RANDOM 104 mg/dL 70-105 (BEAKER) (test code = 652) CALCIUM (BEAKER) 8.7 mg/dL 8.4-10.2 (test code = 697) EGFR (BEAKER) (test 58 mL/min/1.73 ESTIMA MENG GFR IS code = 1092) sq m NOT ACCURATE CREATININE CLEARANCE IN PREDICTING GLOMERULAR FILTRATION RATE . ESTIMATED GFR I S NOT APPLICABLE FOR DIALYSIS PATIJOSÉ MIGUEL TS. Dining Room Captain ID - DBLIPID [id number] 11:23:42 Test Item Value Reference Range Interpretation Comments TRIGLYCERIDES (BEAKER) (test code = 85 mg/dL 540) CHOLESTEROL (BEAKER) (test code = 115 mg/dL 631) HDL CHOLESTEROL (BEAKER) (test code 27 mg/dL = 976) LDL CHOLESTEROL CALCULATED (BEAKER) 71 mg/dL (test code = 633) Triglyceride Reference Range: Low Risk <150 Borderline 150-199 High Risk 200-499 Very High Risk >=500Cholesterol Reference Range: Low Risk <200 Borderline 200-239 High Risk >240HDL Cholesterol Reference Range: Low Risk >=60 High Risk <40LDL Cholesterol Reference Range: Optimal <100 Near Optimal 100-129 Borderline 130-159 High 160-189 Very High >=190 Dining Room Captain ID - DBHEMOGLOBIN [id number] 10:44:50 Test Item Value Reference Range Interpretation Comments HEMOGLOBIN A1C 5.4 % See_Comment [Automated m essage] ELECTROPHORESIS (BEAKER) The system which (test code = 3811) generated this result transmitted ref erence range: <=5.6%. The reference range was not used to int erpret this result as normal/abnormal . "The A1c is measured using a NGSP-certified method. HbA1c value equal to or greater than 6.5% as thediagnosis cutoff for diabetes. An HbA1c value of 5.7- 6.4% indicates increased risk for diabetes (prediabetes)."Dining Room Captain ID - ADMAPTT 2022-02-02 09:56:57 Test Item Value Reference Range Interpretation Comments PARTIAL THROMBOPLASTIN TIME 138.1 seconds 22.5-36.0 H (BEAKER) (test code = 760) CBC (HEMOGRAM ONLY)2022-02-02 09:40:19 Test Item Value Reference Range Interpretation Comments WHITE BLOOD CELL COUNT (BEAKER) 10.5 K/ L 3.5-10.5 (test code = 775) RED BLOOD CELL COUNT (BEAKER) 3.75 M/ L 3.93-5.22 L (test code = 761) HEMOGLOBIN (BEAKER) (test code = 10.8 GM/DL 11.2-15.7 L 410) HEMATOCRIT (BEAKER) (test code = 33.6 % 34.1-44.9 L 411) MEAN CORPUSCULAR VOLUME (BEAKER) 89.6 fL 79.4-94.8 (test code = 753) MEAN CORPUSCULAR HEMOGLOBIN 28.8 pg 25.6-32.2 (BEAKER) (test code = 751) MEAN CORPUSCULAR HEMOGLOBIN CONC 32.1 GM/DL 32.2-35.5 L (BEAKER) (test code = 752) RED CELL DISTRIBUTION WIDTH 16.4 % 11.7-14.4 H (BEAKER) (test code = 412) PLATELET COUNT (BEAKER) (test 237 K/CU MM 150-450 code = 756) MEAN PLATELET VOLUME (BEAKER) 9.7 fL 9.4-12.3 (test code = 754) NUCLEATED RED BLOOD CELLS 0 /100 WBC 0-0 (BEAKER) (test code = 413) [id number] 00:10:37 Test Item Value Reference Range Interpretation Comments PARTIAL THROMBOPLASTIN TIME 77.4 seconds 22.5-36.0 H (BEAKER) (test code = 760) SARS-COV2/RT-PCR ([facility])2022-02-01 22:54:42 Test Item Value Reference Range Interpretation Comments SARS-COV2/RT-PCR (test code = Negative Negative [id number]) Negative result for this test determines that SARS-CoV-2 RNA was not present in the specimen above the Limit of Detection (LOD). However, Negative results do not preclude SARS-CoV-2 infection and should not be used as the sole basis for treatment or patient management decisions. Negative results must be combined with clinical observations, patient history, and epidemiological information. A false negative result may occur if a specimen is improperly collected, transported, or handled. A false negative result should be considered if patient's recent exposures or clinical presentation indicate that COVID-19 (SARS-CoV-2) is likely and diagnostic tests for other causes of illness are negative. Re-testing should be considered in cases of suspected false negatives.The limit of detection for this assay is 100 copies/mL.This SARS-CoV-2 test is a real-time RT_PCR test intended for the qualitative detection of nucleic acid from SARS-CoV-2 in a nasopharyngeal swab specimen collected from individuals suspected of COVID-19 by their healthcare provider.This test has not been Food and Drug Administration (FDA) cleared or approved. This is a modified version of an approved Emergency Use Authorization (EUA) and is in the process of review by the FDA. Once authorized by the FDA, the issued EUA will be e ffective until the declaration that circumstances exist justifying the authorization of the emergency use of in vitro diagnostic tests for detection and/or diagnosis of COVID-19 is terminated under Section 564(b)(2) of the Act or the EUA is revoked under Section 564(g) of the Act.Testing was performedusing the Haddad SARS-CoV-2 assay.Fact Sheet for Healthcare Providers:https://www.molecular.haddad/anastacia/RT SARS-CoV-2 HCP Fact Sheet 51- 009294.pdfFact Sheet for Healthcare Patients:https://www.molecular.haddad/anastacia/RT SARS-CoV-2 Patient Fact Sheet EN 51-601748T5.pdfRAD, FOOT, MIN 3 VIEWS, RIGHT 2022-02-01 15:50:00Reason for exam:->Nonhealing R 5th digit am[facility] : 1930 Sex: FFINAL REPORT INDICATION: Nonhealing right fifth digit amputation TECH NIQUE: Right foot radiograph 3 views. COMPARISON: None. FINDINGS:Diffuse osteopenia is present. Postoperative changes from amputation of the fifth MTP joint. Mild subcutaneous emphysema at the amputation site. Scattered atherosclerotic vascular calcifications. 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 Longitudinal arch of the foot is preserved. IMPRESSION: No radiographic findings of osteomyelitis. Postoperative changes from amputation at the fifth MTP joint. Signed: Chirs Sharp MDReport Verified Date/Time: 02/01/2022 15:50:27 Reading Location: [facility] Radiology Reading Room APTT 2022-02-01 14:11:03 Test Item Value Reference Range Interpretation Comments PARTIAL THROMBOPLASTIN TIME 51.2 seconds 22.5-36.0 H ([employer]) (test code = 760) HEMOGLOBIN [id number] 11:26:58 Test Item Value Reference Range Interpretation Comments HEMOGLOBIN A1C 5.5 % See_Comment [Automated m essage] ELECTROPHORESIS ([employer]) The system which (test code = 3811) generated this result transmitted ref erence range: <=5.6%. The reference range was not used to int erpret this result as normal/abnormal . "The A1c is measured using a NGSP-certified method. HbA1c value equal to or greater than 6.5% as thediagnosis cutoff for diabetes. An HbA1c value of 5.7- 6.4% indicates increased risk for diabetes (prediabetes)."Dining Room Captain ID - ADMOperator ID - [id number] 06:49:40 Test Item Value Reference Range Interpretation Comments PARTIAL THROMBOPLASTIN TIME 30.8 seconds 22.5-36.0 ([employer]) (test code = 760) CBC (HEMOGRAM ONLY)2022-02-01 06:41:56 Test Item Value Reference Range Interpretation Comments WHITE BLOOD CELL COUNT (BEAKER) 9.8 K/ L 3.5-10.5 (test code = 775) RED BLOOD CELL COUNT (BEAKER) 4.23 M/ L 3.93-5.22 (test code = 761) HEMOGLOBIN (BEAKER) (test code = 12.0 GM/DL 11.2-15.7 410) HEMATOCRIT (BEAKER) (test code = 37.8 % 34.1-44.9 411) MEAN CORPUSCULAR VOLUME (BEAKER) 89.4 fL 79.4-94.8 (test code = 753) MEAN CORPUSCULAR HEMOGLOBIN 28.4 pg 25.6-32.2 (BEAKER) (test code = 751) MEAN CORPUSCULAR HEMOGLOBIN CONC 31.7 GM/DL 32.2-35.5 L (BEAKER) (test code = 752) RED CELL DISTRIBUTION WIDTH 16.5 % 11.7-14.4 H (BEAKER) (test code = 412) PLATELET COUNT (BEAKER) (test 247 K/CU MM 150-450 code = 756) MEAN PLATELET VOLUME (BEAKER) 9.9 fL 9.4-12.3 (test code = 754) NUCLEATED RED BLOOD CELLS 0 /100 WBC 0-0 (BEAKER) (test code = 413) PROTHROMBIN TIME/[id number] 00:45:05 Test Item Value Reference Range Interpretation Comments PROTIME (BEAKER) 15.9 seconds 11.9-14.2 H (test code = 759) INR (BEAKER) (test 1.29 See_Comment [Automat ed message] code = 370) The system [employer] generated this result transmitted ref erence range: <=5.90. The reference range was not used to int erpret this result as normal/abnormal . RECOMMENDED COUMADIN/WARFARIN INR THERAPY RANGESSTANDARD DOSE: 2.0 - 3.0 Includes: PROPHYLAXIS forvenous thrombosis, systemic embolization; TREATMENT for venous thrombosis and/or pulmonary embolus.HIGH RISK: Target INR is 2.5-3.5 for patients with mechanical heart valves.LIPID [id number] 00:40:06 Test Item Value Reference Range Interpretation Comments TRIGLYCERIDES (BEAKER) (test code = 76 mg/dL 540) CHOLESTEROL (BEAKER) (test code = 126 mg/dL 631) HDL CHOLESTEROL (BEAKER) (test code 28 mg/dL = 976) LDL CHOLESTEROL CALCULATED (BEAKER) 83 mg/dL (test code = 633) Triglyceride Reference Range: Low Risk <150 Borderline 150-199 High Risk 200-499 Very High Risk >=500Cholesterol Reference Range: Low Risk <200 Borderline 200-239 High Risk >240HDL Cholesterol Reference Range: Low Risk >=60 High Risk <40LDL Cholesterol Reference Range: Optimal <100 Near Optimal 100-129 Borderline 130-159 High 160-189 Very High >=190 Dining Room Captain ID - DBCOMPREHENSIVE METABOLIC [id number] 00:40:05 Test Item Value Reference Range Interpretation Comments TOTAL PROTEIN 6.4 gm/dL 6.0-8.3 (BEAKER) (test code = 770) ALBUMIN (BEAKER) 3.2 g/dL 3.5-5.0 L (test code = 1145) ALKALINE PHOSPHATASE 132 U/L 40-150 (BEAKER) (test code = 346) BILIRUBIN TOTAL 0.8 mg/dL 0.2-1.2 (BEAKER) (test code = 377) SODIUM (BEAKER) (test 133 meq/L 136-145 L code = 381) POTASSIUM (BEAKER) 4.2 meq/L 3.5-5.1 (test code = 379) CHLORIDE (BEAKER) 103 meq/L 98-107 (test code = 382) CO2 (BEAKER) (test 18 meq/L 22-29 L code = 355) BLOOD UREA NITROGEN 31 mg/dL 7-21 H (BEAKER) (test code = 354) CREATININE (BEAKER) 1.05 mg/dL 0.57-1.25 (test code = 358) GLUCOSE RANDOM 116 mg/dL 70-105 H (BEAKER) (test code = 652) CALCIUM (BEAKER) 8.8 mg/dL 8.4-10.2 (test code = 697) AST (SGOT) (BEAKER) 43 U/L 5-34 H (test code = 353) ALT (SGPT) (BEAKER) 48 U/L 6-55 (test code = 347) EGFR (BEAKER) (test 49 mL/min/1.73 ESTIMA MENG GFR IS code = 1092) sq m NOT ACCURATE CREATININE CLEARANCE IN PREDICTING GLOMERULAR FILTRATION RATE . ESTIMATED GFR I S NOT APPLICABLE FOR DIALYSIS PATIEN TS. Dining Room Captain ID - DBCBC W/PLT COUNT & AUTO [id number] 00:03:53 Test Item Value Reference Range Interpretation Comments WHITE BLOOD CELL COUNT (BEAKER) 10.6 K/ L 3.5-10.5 H (test code = 775) RED BLOOD CELL COUNT (BEAKER) 3.98 M/ L 3.93-5.22 (test code = 761) HEMOGLOBIN (BEAKER) (test code = 11.5 GM/DL 11.2-15.7 410) HEMATOCRIT (BEAKER) (test code = 35.2 % 34.1-44.9 411) MEAN CORPUSCULAR VOLUME (BEAKER) 88.4 fL 79.4-94.8 (test code = 753) MEAN CORPUSCULAR HEMOGLOBIN 28.9 pg 25.6-32.2 (BEAKER) (test code = 751) MEAN CORPUSCULAR HEMOGLOBIN CONC 32.7 GM/DL 32.2-35.5 (BEAKER) (test code = 752) RED CELL DISTRIBUTION WIDTH 16.1 % 11.7-14.4 H (BEAKER) (test code = 412) PLATELET COUNT (BEAKER) (test 241 K/CU MM 150-450 code = 756) MEAN PLATELET VOLUME (BEAKER) 9.6 fL 9.4-12.3 (test code = 754) NUCLEATED RED BLOOD CELLS 0 /100 WBC 0-0 (BEAKER) (test code = 413) NEUTROPHILS RELATIVE PERCENT 69 % (BEAKER) (test code = 429) LYMPHOCYTES RELATIVE PERCENT 22 % (BEAKER) (test code = 430) MONOCYTES RELATIVE PERCENT 7 % (BEAKER) (test code = 431) EOSINOPHILS RELATIVE PERCENT 2 % (BEAKER) (test code = 432) BASOPHILS RELATIVE PERCENT 0 % (BEAKER) (test code = 437) NEUTROPHILS ABSOLUTE COUNT 7.31 K/ L 1.56-6.13 H (BEAKER) (test code = 670) LYMPHOCYTES ABSOLUTE COUNT 2.32 K/ L 1.18-3.74 (BEAKER) (test code = 414) MONOCYTES ABSOLUTE COUNT (BEAKER) 0.70 K/ L 0.24-0.36 H (test code = 415) EOSINOPHILS ABSOLUTE COUNT 0.16 K/ L 0.04-0.36 (BEAKER) (test code = 416) BASOPHILS ABSOLUTE COUNT (BEAKER) 0.02 K/ L 0.01-0.08 (test code = 417) IMMATURE GRANULOCYTES-RELATIVE 1 % 0-1 PERCENT (BEAKER) (test code = 2801)
[2022-02-18] MEDS ORDERED: VANCOMYCIN 1 GM/VIAL ONE (19:22)
[2022-02-18] MEDS ORDERED: NA CHLORIDE 0.9% 250 ML ONE (19:22)
[2022-02-18] MEDS ORDERED: NA CHLORIDE 0.9% 100 ML ONE (19:22)
[2022-02-18] MEDS ORDERED: CEFEPIME 1 GM/VIAL ONE (19:23)
--- NOTE | 2022-02-18 19:29 | RAD REPORT ---
EXAM DESCRIPTION: RAD - Chest Single View - 02/18/2022 7:23 pm CLINICAL HISTORY: SWELLING COMPARISON: No comparisons FINDINGS: Lines: None. Lungs: No evidence of edema or pneumonia. Pleural: No significant pleural effusions or pneumothorax. Cardiac: Cardiomegaly Bones: No acute fractures. Other: IMPRESSION: No acute cardiopulmonary disease.
[2022-02-18 20:42] LABS: Absolute Lymphocytes (CBC) 2.3 K/uL (0.7-4.9); Hematocrit 26.3 % (36.0-45.0); Lymphocytes % 26.7 % (15.3-44.8); MPV 7.9 fL (7.6-11.3)
[2022-02-18 21:01] LABS: Albumin 2.6 g/dL (3.4-5.0); Bilirubin Direct 0.2 mg/dL (0-0.2); Bilirubin Total 0.3 mg/dL (0.2-1.0); C-Reactive Protein 9.89 mg/L (<3.00); Potassium 3.1 mmol/L (3.5-5.1); Protein, Total 6.2 g/dL (6.4-8.2)
--- NOTE | 2022-02-18 21:12 | RAD REPORT ---
EXAM DESCRIPTION: US - Extremity Venous Uni Ltd - 02/18/2022 9:06 pm CLINICAL HISTORY: Pain COMPARISON: None. TECHNIQUE: Real-time sonographic evaluation of the right lower extremity deep venous system was perf ormed. FINDINGS: Normal compressibility, flow augmentation, phasic flow and spontaneous flow is identified in the right lower extremity deep venous system. No intraluminal filling defects seen. IMPRESSION: No DVT in the right lower extremity.
--- NOTE | 2022-02-18 21:13 | EDPHYS ---
Physician Documentation [facility] Name: Jia Mckinney Age: 89 yrs Sex: Female : 1930 Arrival Date: 02/18/2022 Time: 18:50 Bed 18 Private MD: ED Physician Adithya Barber HPI: 02/18 19:05 This 89 yrs old Female presents to ER via EMS with complaints of Wound Infection. cp 19:05 The patient presents with pain. cp 19:05 The complaints affect the right fifth toe amputation site. cp 19:05 Context: recent discharge from rehab for infection of right foot. Associated signs and cp symptoms: Pertinent positives: calf tenderness, fever, swelling, warmth. Historical: - Allergies: 18:55 No Known Allergies; ld1 - PMHx: 18:55 PVD; ld1 - PSHx: 18:55 right great toe amputation; ld1 - Immunization history:: Adult Immunizations up to date, Client reports receiving the 2nd dose of the Covid vaccine. - Social history:: Smoking status: Patient denies any tobacco usage or history of. Patient/guardian denies using alcohol. ROS: 19:10 Constitutional: Negative for fever, poor PO intake. cp 19:10 Cardiovascular: Negative for chest pain, palpitations. cp 19:10 Respiratory: Negative for cough, shortness of breath, wheezing. 19:10 Abdomen/GI: Negative for abdominal pain, nausea, vomiting, and diarrhea. 19:10 Eyes: Negative for injury, pain, redness, and discharge. cp 19:10 ENT: Negative for drainage from ear(s), ear pain, sore throat, difficulty swallowing, cp difficulty handling secretions. 19:10 Neuro: Negative for altered mental status, headache, numbness, weakness. 19:10 All other systems are negative. Exam: 19:15 Constitutional: The patient appears in no acute distress, alert, awake, cp non-diaphoretic, non-toxic, well developed, well nourished. 19:15 Head/Face: Normocephalic, atraumatic. cp 19:15 Eyes: Periorbital structures: appear normal, Conjunctiva: normal, no exudate, no injection, Sclera: no appreciated abnormality, Lids and lashes: appear normal, bilaterally. 19:15 ENT: External ear(s): are unremarkable, Nose: is normal, Mouth: is normal, Posterior pharynx: Airway: no evidence of obstruction, patent. 19:15 Chest/axilla: Inspection: normal, Palpation: is normal, no crepitus, no tenderness. 19:15 Cardiovascular: Rate: tachycardic, Rhythm: regular, Edema: mild right lower leg and right foot, JVD: is not appreciated. 19:15 Respiratory: the patient does not display signs of respiratory distress, Respirations: normal, no use of accessory muscles, no retractions, labored breathing, is not present, Breath sounds: are clear throughout, no decreased breath sounds, no stridor, no wheezing. 19:15 Abdomen/GI: Inspection: abdomen appears normal, Palpation: abdomen is soft and non-tender, in all quadrants. 19:15 Back: pain, is absent. 19:15 Musculoskeletal/extremity: Extremities: noted in the right foot: fifth toe amputated, wound with erythema, purulent drainage, swelling noted to dorsum of right foot. 19:28 ECG was reviewed by the Attending Physician. cp 21:17 ECG was reviewed by the Attending Physician. [facility] Vital Signs: 18:50 BP 118 / 53; Pulse 101; Resp 20; Temp 98.7(TE); Pulse Ox 98% on R/A; Weight 63.5 kg; ld1 Height 5 ft. 6 in. (167.64 cm); Pain 6/10; 18:57 BP 135 / 58; Pulse 95; Resp 19; Temp 98.3(O); Pulse Ox 100% on R/A; ld1 20:00 BP 108 / 50; Pulse 88; Resp 18; Pulse Ox 100% ; ll3 21:00 BP 124 / 60; Pulse 97; Resp 19; Pulse Ox 100% on R/A; ll3 22:00 BP 121 / 58; Pulse 98; Resp 18; Pulse Ox 100% on R/A; ll3 23:00 BP 119 / 78; Pulse 91; Resp 20; Pulse Ox 100% on R/A; ll3 18:50 Body Mass Index 22.60 (63.50 kg, 167.64 cm) ld1 MDM: 19:00 Patient medically screened. cp 21:13 Data reviewed: vital signs, nurses notes, lab test result(s), EKG, radiologic studies, ze plain films. Data interpreted: engine monitor: rate is 88 beats/min, rhythm is atrial fibrillation, Pulse oximetry: on room air is 100 %. Test interpretation: by ED physician or midlevel provider: ECG, plain radiologic studies. Counseling: I had a detailed discussion with the patient and/or guardian regarding: the historical points, exam findings, and any diagnostic results supporting the discharge/admit diagnosis, lab results, radiology results, the need to transfer to another facility, for higher level of care, [facility] does not immediately have the required specialist. 02/18 19:03 Order name: Basic Metabolic Panel; Complete Time: 21:14 cp 02/18 19:03 Order name: CBC with Diff; Complete Time: 20:58 cp 02/18 19:03 Order name: LFT's; Complete Time: 21:14 cp 02/18 19:03 Order name: Magnesium; Complete Time: 21:14 cp 02/18 19:03 Order name: NT PRO-BNP; Complete Time: 21:14 02/18 19:03 Order name: PT-INR 02/18 19:03 Order name: Troponin HS; Complete Time: 21:14 cp 02/18 19:03 Order name: Procalcitonin 02/18 19:03 Order name: Lactate; Complete Time: 20:58 cp 02/18 19:03 Order name: Blood Culture Adult (2) 02/18 19:03 Order name: Wound Culture 02/18 19:03 Order name: ESR; Complete Time: 22:10 02/18 19:03 Order name: CRP; Complete Time: 21:14 02/18 20:22 Order name: COVID-19 SARS RT PCR (Document "Date of Onset" if Symptomatic); Complete cp Time: 22:10 02/18 19:03 Order name: XRAY Chest (1 view); Complete Time: 20:22 cp 02/18 20:23 Interpretation: Report review. 02/18 19:03 Order name: EKG; Complete Time: 19:05 02/18 19:03 Order name: Cardiac monitoring; Complete Time: 19:05 02/18 19:03 Order name: EKG - Nurse/Tech; Complete Time: 19:24 cp 02/18 19:03 Order name: IV Saline Lock; Complete Time: 19:05 06/23 19:03 Order name: Labs collected and sent; Complete Time: 20:36 cp 02/18 19:03 Order name: O2 Per Protocol; Complete Time: 19:05 cp 02/18 19:03 Order name: O2 Sat Monitoring; Complete Time: 19:05 cp 02/18 19:03 Order name: Extremity Venous Unilateral Ltd; Complete Time: 21:14 cp 02/18 19:03 Order name: LE Artery Uni Ltd; Complete Time: 22:10 cp 02/18 23:36 Order name: Lactate Sepsis 2 HR Follow-up EDMS EC:28 Rate is 92 beats/min. Rhythm is irregular. QRS interval is normal. QT interval is cp prolonged. Interpreted by me. Reviewed by me. 21:17 Rate is 92 beats/min. Rhythm is irregular. QRS [facility] is Normal. NV interval is normal. ze QRS interval is normal. QT interval is normal. No Q waves. T waves are Normal. No ST changes noted. Clinical impression: Atrial Fibrillation and No evidence of ischemia. Interpreted by me. Reviewed by me. Administered Medications: 21:10 Drug: Cefepime 1 grams Route: IVPB; Rate: 200 ml/hr; Infused Over: 30 mins; Site: right ll3 wrist; 22:09 Follow up: Response: No adverse reaction; IV Status: Completed infusion; IV Intake: ll3 100ml 21:42 Drug: NS 0.9% 1000 ml Route: IV; Rate: 1000 ml/hr; Site: right wrist; ll3 23:38 Follow up: Response: No adverse reaction; IV Status: Completed infusion; IV Intake: ll3 1000ml 21:50 Drug: vancoMYCIN 1 grams Route: IVPB; Infused Over: 2 hrs; Site: right wrist; ll3 23:38 Follow up: Response: No adverse reaction; IV Status: Infusion continued upon transfer; ll3 IV Intake: 150ml 22:10 Drug: Potassium Effervescent Tablet 25 mEq Route: PO; ll3 23:38 Follow up: Response: No adverse reaction ll3 Disposition: 21:13 Co-signature as Attending Physician, Adithya Barber MD I agree with the assessment and ze plan of care. Disposition Summary: 02/18/22 21:12 Transfer Ordered Transfer Location: [facility] ze Reason: Higher level of care ze Condition: Fair ze Problem: new ze Symptoms: have improved ze Accepting Physician: to [facility], medicine / vascular(02/18/22 23:39) ll3 Diagnosis - Peripheral vascular disease, unspecified - right lower extremity ze - Cellulitis and acute lymphangitis of other parts of limb - right foot toes ischemia ze - Edema, unspecified ze - Venous insufficiency (chronic) (peripheral) ze - Anemia, unspecified ze - Hypokalemia ze - Chronic atrial fibrillation ze Discharge Instructions: - Discharge Summary Sheet wm Forms: - Medication Reconciliation Form ze - SBAR form wm Signatures: Dispatcher [employer] EDAdithya Henriquez MD MD cha Page, Corey, PA PA Erna Quiroga RN RN ld1 Zunilda Durand RN RN ll3 Corrections: (The following items were deleted from the chart) 21:16 21:12 to [facility], medicine / vascular [facility] 22:13 21:16 to [facility], medicine / vascular [facility] 23:39 22:13 to [facility], medicine / vascular [facility] ll3
--- NOTE | 2022-02-18 21:13 | ER ---
Nurse's Notes [facility] Name: Jia Mckinney Age: 89 yrs Sex: Female : 1930 Arrival Date: 02/18/2022 Time: 18:50 Bed 18 Private MD: Diagnosis: Peripheral vascular disease, unspecified-right lower extremity;Cellulitis and acute lymphangitis of other parts of limb-right foot toes ischemia;Edema, unspecified;Venous insufficiency (chronic) (peripheral);Anemia, unspecified;Hypokalemia;Chronic atrial fibrillation Presentation: 02/18 18:50 Chief complaint: EMS states: toned out for wound infection to right foot. Pt was d/c ld1 from rehab on Tuesday for foot infection. Pt states "It seems to be getting worse.". Coronavirus screen: At this time, the client does not indicate any symptoms associated with coronavirus-19. Ebola Screen: No symptoms or risks identified at this time. Initial Sepsis Screen: Does the patient meet any 2 criteria? No. Patient's initial sepsis screen is negative. Does the patient have a suspected source of infection? No. Patient's initial sepsis screen is negative. Risk Assessment: Do you want to hurt yourself or someone else? Patient reports no desire to harm self or others. Onset of symptoms was February 18, 2022. 18:50 Method Of Arrival: [facility] ld1 18:50 Acuity: LUL 3 ld1 Triage Assessment: 18:55 General: Appears in no apparent distress. comfortable, Behavior is calm, cooperative, ld1 appropriate for age. Pain: Complains of pain in right foot Pain does not radiate. Pain currently is 6 out of 10 on a pain scale. Quality of pain is described as throbbing. EENT: No signs and/or symptoms were reported regarding the EENT system. Neuro: Level of Consciousness is awake, alert, obeys commands, Oriented to person, place, time, situation, Appropriate for age. Cardiovascular: Capillary refill < 3 seconds Patient's skin is warm and dry. Respiratory: Airway is patent Respiratory effort is even, unlabored, Respiratory pattern is regular, symmetrical. GI: Abdomen is round non-distended. : No signs and/or symptoms were reported regarding the genitourinary system. Derm: Skin Skin is black, Wound noted right foot and right leg. Musculoskeletal: No signs and/or symptoms reported regarding the musculoskeletal system. Historical: - Allergies: 18:55 No Known Allergies; ld1 - PMHx: 18:55 PVD; ld1 - PSHx: 18:55 right great toe amputation; ld1 - Immunization history:: Adult Immunizations up to date, Client reports receiving the 2nd dose of the Covid vaccine. - Social history:: Smoking status: Patient denies any tobacco usage or history of. Patient/guardian denies using alcohol. Screenin:39 Abuse screen: Denies threats or abuse. Nutritional screening: No deficits noted. ll3 Tuberculosis screening: No symptoms or risk factors identified. Fall Risk No fall in past 12 months (0 pts). Secondary diagnosis (15 points) dementia, IV access (20 points). Ambulatory Aid- None/Bed Rest/Nurse Assist (0 pts). Gait- Impaired (20 pts.). Mental Status- Overestimates/Forgets Limitations (15 pts.). Total Teague Fall Scale indicates High Risk Score (45 or more points). Fall prevention measures have been instituted. Side Rails Up X 2 Placed Close to Nursing Station Family Present and informed to notify staff if the need to leave the bedside As available patient and family educated on Fall Prevention Program and Strategies. Assessment: 19:00 General: Appears comfortable, Behavior is calm, cooperative. Pain: Complains of pain in ll3 right foot. Neuro: Level of Consciousness is awake, alert, obeys commands, Oriented to person, place, situation. Respiratory: Respiratory effort is even, unlabored, Respiratory pattern is regular, symmetrical. Derm: Skin is yellow, Green, black Wound noted right foot Reports pain. 20:39 Reassessment: No changes from previously documented assessment. Patient and/or family ll3 updated on plan of care and expected duration. Pain level reassessed. Patient is alert, oriented x 3, equal unlabored respirations, skin warm/dry/pink. 22:30 Reassessment: No changes from previously documented assessment. Patient and/or family ll3 updated on plan of care and expected duration. Pain level reassessed. Patient is alert, oriented x 3, equal unlabored respirations, skin warm/dry/pink. 23:37 Reassessment: No changes from previously documented assessment. Patient and/or family ll3 updated on plan of care and expected duration. Pain level reassessed. Patient is alert, oriented x 3, equal unlabored respirations, skin warm/dry/pink. Vital Signs: 18:50 BP 118 / 53; Pulse 101; Resp 20; Temp 98.7(TE); Pulse Ox 98% on R/A; Weight 63.5 kg; ld1 Height 5 ft. 6 in. (167.64 cm); Pain 6/10; 18:57 BP 135 / 58; Pulse 95; Resp 19; Temp 98.3(O); Pulse Ox 100% on R/A; ld1 20:00 BP 108 / 50; Pulse 88; Resp 18; Pulse Ox 100% ; ll3 21:00 BP 124 / 60; Pulse 97; Resp 19; Pulse Ox 100% on R/A; ll3 22:00 BP 121 / 58; Pulse 98; Resp 18; Pulse Ox 100% on R/A; ll3 23:00 BP 119 / 78; Pulse 91; Resp 20; Pulse Ox 100% on R/A; ll3 18:50 Body Mass Index 22.60 (63.50 kg, 167.64 cm) ld1 ED Course: 18:50 Patient arrived in ED. ld1 18:50 Adithya Copeland PA is PHCP. cp 18:50 Eduar Paez MD is Attending Physician. cp 18:55 Triage completed. ld1 18:55 Arm band placed on right wrist. ld1 18:57 Erna Gongora, ZOIE is Primary Nurse. ld1 19:02 Maintain EMS IV. Dressing intact. Good blood return noted. Site clean \\T\\ dry. Gauge \\T\\ ld 1 site: 20G RH. 19:25 XRAY Chest (1 view) In Process Unspecified. EDMS 20:39 Patient has correct armband on for positive identification. Bed in low position. Call ll3 light in reach. Side rails up X 1. Adult w/ patient. Client placed on continuous cardiac and pulse oximetry monitoring. NIBP monitoring applied. 20:39 No provider procedures requiring assistance completed. ll3 20:57 Dr. Barber initiated call to [facility] spoke to [facility] for transfer. wm 21:08 US Extremity Venous Unilateral Ltd In Process Unspecified. EDMS 21:08 US LE Artery Uni Ltd In Process Unspecified. EDMS 21:08 COVID-19 SARS RT PCR (Document "Date of Onset" if Symptomatic) Sent. ds4 21:09 Attending Physician role handed off by Eduar Paez MD cha 21:09 Adithya Barber MD is Attending Physician. [facility] 22:24 Pt accepted for transfer by Dr. Santos Mahoney at 22:13. 23:37 Patient transferred, IV remains in place. ll3 Administered Medications: 21:10 Drug: Cefepime 1 grams Route: IVPB; Rate: 200 ml/hr; Infused Over: 30 mins; Site: right ll3 wrist; 22:09 Follow up: Response: No adverse reaction; IV Status: Completed infusion; IV Intake: ll3 100ml 21:42 Drug: NS 0.9% 1000 ml Route: IV; Rate: 1000 ml/hr; Site: right wrist; ll3 23:38 Follow up: Response: No adverse reaction; IV Status: Completed infusion; IV Intake: ll3 1000ml 21:50 Drug: vancoMYCIN 1 grams Route: IVPB; Infused Over: 2 hrs; Site: right wrist; ll3 23:38 Follow up: Response: No adverse reaction; IV Status: Infusion continued upon transfer; ll3 IV Intake: 150ml 22:10 Drug: Potassium Effervescent Tablet 25 mEq Route: PO; ll3 23:38 Follow up: Response: No adverse reaction ll3 Medication: 20:40 VIS not applicable for this client. ll3 Intake: 22:09 IV: 100ml; Total: 100ml. ll3 23:38 IV: 1000ml; Total: 1100ml. ll3 23:38 IV: 150ml; Total: 1250ml. ll3 Outcome: 21:12 ER care complete, transfer ordered by . [facility] 23:37 Transferred by ground EMS to [facility], Transfer form completed. ll3 X-rays sent w/ patient. 23:37 Condition: stable 23:37 Discharge instructions given to EMS, Instructed on the need for transfer, Demonstrated understanding of instructions. 23:39 Patient left the ED. ll3 Signatures: Dispatcher [employer] EDAdithya Henriquez MD MD cha Swanson, Donovan ds4 Adithya Copeland PA PA cp Dibbern, Lauren, RN RN ld1 Halima Agudelo Zunilda Durand RN RN ll3
--- NOTE | 2022-02-18 21:35 | RAD REPORT ---
EXAM DESCRIPTION: US - Lower Extremity Artery Uni Ltd - 02/18/2022 9:06 pm CLINICAL HISTORY: Pain COMPARISON: Extrem Venous W Compress Sammy dated 01/31/2022Lower Extremity Arterial Bilat dated 01/31/2022 FINDINGS: Color Doppler, grayscale, and spectral analysis was performed. Monophasic flow throughout the right lower extremity arteries including the common femoral artery, olivera perficial femoral artery, popliteal artery, posterior tibial artery, and dorsalis pedis artery. IMPRESSION: Monophasic flow throughout the right lower extremity arteries may reflect a proximal ana maría w limiting stenosis at the left iliac vessels. .
[2022-02-18] MEDS ORDERED: POTASSIUM 25 MEQ EFFERV TAB ONE (21:44)
[2022-02-18] MEDS ORDERED: NA CHLORIDE 0.9% 1,000 ML ONE (21:45)
[2022-02-18 23:22] LABS: Protime INR 1.17
[2022-02-18 23:46] VITALS: TEMP 98.3; O2SAT 100
[2022-02-18 23:53] VITALS: BP 119/78
--- NOTE | 2022-02-20 17:32 | EKG ---
Test Date: 2022-02-18 Test Time: 19:20:53 Top Carrier: FEMI MEASUREMENT RESULTS: Intervals: Rate: 92 NJ: QRSD: 82 QT: 406 QTc: 502 [place]: P: NJ: QRS: 20 T: 245 INTERPRETIVE STATEMENTS: Atrial fibrillation with occasional atrial-paced complexes ST & T wave abnormality, consider inferior ischemia ST & T wave abnormality, consider anterolateral ischemia Prolonged QT Abnormal ECG Compared to ECG 01/31/2022 12:48:50 Prolonged QT interval now present ST (T wave) deviation still present Possible ischemia still present Electronically Signed On 02-20-22 17:29:30 CDT by Gilbert Emery
== END 2022-02-18 23:39 | disposition short-term general hospital (02) ==
LOC: ER 18:49
DX: L03.031 Cellulitis of right toe (principal); L03.041 Acute lymphangitis of right toe; I73.9 Peripheral vascular disease, unspecified; I87.2 Venous insufficiency (chronic) (peripheral); R60.9 Edema, unspecified; D64.9 Anemia, unspecified; E87.6 Hypokalemia; I48.19 Other persistent atrial fibrillation; Z89.411 Acquired absence of right great toe; Z20.822 Contact with and (suspected) exposure to COVID-19
CPT/HCPCS: 96365; 93005; 87040 ×2; 87070; 85025; 80048; 36415; 83735; 87205; 85610; 80076; 83605 ×2; 85652; 84484; 84145; 83880; 86140; 71045; 93926; 93971; 99285; U0003; J3370; J7050; J7030; J0692; 87077; 87186